=== PATIENT | male | born 1985 | race Caucasian/White ===

== ENCOUNTER 2017-07-22 12:20 | Emergency (ER) | payer OTHER ==
[~2017-07-22] VITALS: Ht 167.6 cm; Wt 102.5 kg
[2017-07-22 12:49] VITALS: Ht 167.6 cm; Wt 102.5 kg
[2017-07-22 15:46] LABS: BASOPHIL # 0.1 10^3/ul (0.0-0.1); BASOPHILS % 0.6 % (0.0-2.0); EOSINOPHILS # 0.3 10^3/ul (0.0-0.5); EOSINOPHILS % 2.3 % (0.0-7.0); HEMATOCRIT 46.9 % (42.0-52.0); HEMOGLOBIN 15.6 g/dl (14.0-18.0); LYMPHOCYTES # 2.8 10^3/ul (0.8-2.9); LYMPHOCYTES % 25.5 % (15.0-51.0); MEAN CORPUSCULAR HEMOGLOBIN 28.4 pg (29.0-33.0); MEAN CORPUSCULAR HGB CONC 33.3 g/dl (32.0-37.0); MEAN CORPUSCULAR VOLUME 85.3 fl (82.0-101.0); MEAN PLATELET VOLUME 9.7 fl (7.4-10.4); MONOCYTES % 9.1 % (0.0-11.0); NEUTROPHIL # 6.8 10^3/ul (1.6-7.5); PLATELET COUNT 341 10^3/UL (140-415); RED CELL DISTRIBUTION WIDTH 12.1 % (11.5-14.5)
[2017-07-22 16:07] LABS: ALBUMIN/GLOBULIN RATIO 1.66
[2017-07-22 16:08] LABS: BILIRUBIN,INDIRECT 0.2 mg/dl (0-1.1); BILIRUBIN,TOTAL 0.2 mg/dl (0.2-1.3); CALCIUM 9.8 mg/dl (8.4-10.2); CREATININE 1.13 mg/dl (0.61-1.24); POTASSIUM 4.2 mmol/L (3.5-5.1)
--- NOTE | 2017-07-22 16:22 | ERD ---
ER Documentation Chief Complaint Chief Complaint bilateral foot swelling denies pain since last night HPI 32 y/o male patient with no significant medical history, presents to the emergency department c/o bilateral lower extremity edema for the last couple of months. Denies pain, shortness of breath, fever, chills, N/V/D. No history of previous episodes. Treatment attempted: none. He works standing for 10h at day. ROS SYSTEMIC symptoms: no fever, chills, no night sweats, no weight loss EYE symptoms: No blurred vision, no eye discharge OTOLARYNGEAL symptoms: No hearing loss. No ear pain, no sore throat CARDIOVASCULAR symptoms: No chest pain or discomfort, no palpitations. PULMONARY symptoms: No dyspnea, no cough, no wheezing. GASTROINTESTINAL symptoms: No abdominal pain, no nausea, no vomiting, no diarrhea MUSCULOSKELETAL symptoms: No arthralgias, no muscle aches. NEUROLOGY symptoms: No confusion, no syncope, no numbness or tingling. SKIN no rashes All systems reviewed and are negative except as per history of present illness. Medications Home Meds Active Scripts Hydrochlorothiazide (Hydrochlorothiazide) 25 Mg Tablet, 25 MG PO DAILY, #30 TAB Prov:CHARLY GONGORA MD 07/22/17 Allergies Allergies: Coded Allergies: No Known Allergy (Unverified , 07/22/17) PMhx/Soc Medical and Surgical Hx: pt denies Medical Hx, pt denies Surgical Hx Physical Exam Vitals Vital Signs Date Time Temp Pulse Resp B/P Pulse Ox O2 Delivery O2 Flow Rate FiO2 07/22/17 12:49 98.1 63 20 156/73 97 Physical Exam Patient is in no acute distress, vital signs stable. Alert and fully oriented. EYES: PERRLA, EOMI, Sclera and conjunctiva appear normal. EARS: Canals clear, tympanic membranes WNL THROAT: Normal oropharynx. NECK: Supple, No lymphadenopathy. Full ROM without pain or tenderness. HEART: RRR, no rubs, murmurs, clicks or gallops. LUNGS: Clear to auscultation. ABDOMEN: Soft, non-tender without masses or hepatosplenomegaly. EXTREMITIES: 1+ nonpitting edema bilaterally. Result Diagram: 07/22/17 1534 07/22/17 1534 Results 24 hrs Laboratory Tests Test 07/22/17 15:34 White Blood Count 11.010^3/ul Red Blood Count 5.5010^6/ul Hemoglobin 15.6g/dl Hematocrit 46.9% Mean Corpuscular Volume 85.3fl Mean Corpuscular Hemoglobin 28.4pg Mean Corpuscular Hemoglobin Concent 33.3g/dl Red Cell Distribution Width 12.1% Platelet Count 13361^3/UL Mean Platelet Volume 9.7fl Neutrophils % 62.0% Lymphocytes % 25.5% Monocytes % 9.1% Eosinophils % 2.3% Basophils % 0.6% Nucleated Red Blood Cells % 0.0/100WBC Neutrophils # 6.810^3/ul Lymphocytes # 2.810^3/ul Monocytes # 1.010^3/ul Eosinophils # 0.310^3/ul Basophils # 0.110^3/ul Nucleated Red Blood Cells # 0.010^3/ul Sodium Level 143mmol/L Potassium Level 4.2mmol/L Chloride Level 102mmol/L Carbon Dioxide Level 28mmol/L Anion Gap 17 Blood Urea Nitrogen 15mg/dl Creatinine 1.13mg/dl Glucose Level 93mg/dl Calcium Level 9.8mg/dl Total Bilirubin 0.2mg/dl Direct Bilirubin 0.00mg/dl Indirect Bilirubin 0.2mg/dl Aspartate Amino Transf (AST/SGOT) 31IU/L Alanine Aminotransferase (ALT/SGPT) 51IU/L Alkaline Phosphatase 86IU/L Total Protein 8.0g/dl Albumin 5.0g/dl Globulin 3.00g/dl Albumin/Globulin Ratio 1.66 Procedures/MDM 32 y/o male patient, presents to the ED c/o bilateral lower extremity edema for 2 months. Vital signs showed mild elevated blood pressure, Physical exam unremarkable except for mild bilateral lower extremity not pitting edema. Differential diagnosis include but not limited to: Cellulitis, lymphedema, venous insufficiency, fluid retention, less likely DVT. Pertinent Data: Labs: CBC: normal, CMP: kidney function borderline, liver function normal, electrolytes normal. Physical examination and clinical presentation consistent most likely with HTN and venous stasis with fluid retention. Results and medical impression discussed with patient who agrees with management. The patient will be discharged home with a Rx for hydrochlorothiazide 25 mg If symptoms persist, worsen or new symptoms develop, then patient is instructed to follow-up with the primary care provider. If the patient is unable to see the primary care provider, then return to the ED immediately. Departure Diagnosis: Primary Impression: Stasis edema of both lower extremities Additional Impression: Hypertension Condition: Stable Additional Instructions: Thank you very much for allowing us to participate in your care. Your health and safety is our top priority at [facility]. Have prescriptions filled and follow precisely the directions on the label. Follow-up with primary care provider during the next 4 days and bring all the information and medications prescribed. If illness has not improved in 2 days, then make an appointment with primary care provider. If the provider is unavailable, return to the Emergency Department immediately. CHARLY GONGORA MD Jul 22, 2017 16:20
[2017-07-22] MEDS ORDERED: HYDR25TA6 PO (16:23)
== END 2017-07-22 16:50 | disposition home or self-care (01) ==
LOC: FTE 12:20
DX: I87.303 Chronic venous hypertension (idiopathic) without complications of bilateral lower extremity (principal); I10 Essential (primary) hypertension
CPT/HCPCS: 36415; 80053; 85025; Z7502; 99283